=== PATIENT | male | born 1970 | race Caucasian/White ===

== ENCOUNTER 2021-11-14 09:36 | Day surgery (SDC) | payer OTHER ==
[~2021-11-14] VITALS: Ht 188 cm; Wt 82.6 kg
[2021-11-14] MEDS ORDERED: HCTZ 25MG TAB25 MG PO (09:59)
[2021-11-14] MEDS ORDERED: ONE-A-DAY ESSE1 EACH PO (10:00)
[2021-11-14] MEDS ORDERED: FISH OIL1000 MG PO (10:00)
[2021-11-14 10:21] VITALS: BP 121/85; PULSE 66; TEMP 98.3
[2021-11-14 11:25] VITALS: BP 123/92; PULSE 61; TEMP 98.1
--- NOTE | 2021-11-14 11:25 | NUR ---
pt to [facility] via cart from endo room, walked to chair, call light in reach, takes muffin and juice no c/o
[2021-11-14 11:40] VITALS: BP 129/86; PULSE 59
--- NOTE | 2021-11-14 11:40 | NUR ---
in room, into see pt.
[2021-11-14 11:55] VITALS: BP 128/95; PULSE 50
--- NOTE | 2021-11-14 12:10 | NUR ---
iv d'cd intact, reviewed discharge inst. with pt with verbal understanding, on moderate sedation precautions, followup and recommendations. pt up in room dressed, discharged via w/c to car with
== END 2021-11-14 12:10 | disposition home or self-care (01) ==
LOC: SDCO 09:36
DX: Z12.11 Encounter for screening for malignant neoplasm of colon (principal)
CPT/HCPCS: J2704; J7120